=== PATIENT | female | born 1970 | race Two or more races ===

== ENCOUNTER 2023-07-21 07:49 | Emergency (ER) | payer OTHER ==
[~2023-07-21] VITALS: Ht 154.9 cm; Wt 82.5 kg
[2023-07-21 08:35] VITALS: BP 152/86; PULSE 122; RESP 18; TEMP 98.7; O2SAT 95
[2023-07-21 09:35] LABS: Urine Bacteria FEW /hpf (None Seen); Urine Blood 1+ /uL (Negative); Urine Clarity HAZY (Clear); Urine Color Yellow (Yellow); Urine Mucus FEW (None Seen); Urine Protein, UAD 1+ (Negative); Urine Specific Gravity 1.031 (1.001-1.035); Urine Urobilinogen Normal (Negative); Urine WBC 2 /hpf (0 - 5)
[2023-07-21 09:59] LABS: Rapid Strep A Screen-Throat Positive
[2023-07-21 10:10] LABS: COVID19 ANTIGEN SOFIA FIA NEGATIVE (NEGATIVE)
[2023-07-21] MEDS ORDERED: LIDOCAINE VISCOUS 2% 15ML UD MT ONE (10:15)
[2023-07-21] MEDS ORDERED: DexAMETHasone SOD PHOS 10MG/1ML VIAL INJ IM ONE (10:15)
[2023-07-21] MEDS ORDERED: PENICILLIN G BENZ 1200000 UNITS/2 ML SYRG IM ONE (10:15)
[2023-07-21] MEDS ORDERED: AUG875T PO (10:21)
[2023-07-21] MEDS ORDERED: IBUP1TAB5 PO (10:21)
[2023-07-21] MEDS ORDERED: PRED20TA2 PO (10:21)
[2023-07-21] MEDS ORDERED: BENZLOZ2 MT (10:21)
[2023-07-21] MEDS ORDERED: BENZ200C64 PO (10:21)
[2023-07-21] MEDS ORDERED: OFL50TS OT (10:21)
[2023-07-21] MEDS ORDERED: ALBUAER3 IN (10:21)
== END 2023-07-21 10:37 | disposition home or self-care (01) ==
LOC: ER 07:49
DX: J02.0 Streptococcal pharyngitis (principal); H66.93 Otitis media, unspecified, bilateral; R05.9 Cough, unspecified; R50.9 Fever, unspecified; R06.02 Shortness of breath; Z20.822 Contact with and (suspected) exposure to COVID-19
CPT/HCPCS: 36415; 71045; 81001; 87426; 87880; 93005; 96372; 99285; J0561; J1100